=== PATIENT | male | born 1995 | race Hispanic/Latino ===

== ENCOUNTER 2019-06-23 08:50 | Outpatient (CLI) | payer BC ==
--- NOTE | 2019-06-23 09:22 | ULT ---
GALLBLADDER ULTRASOUND: HISTORY:Abdominal pain after eating FINDINGS: The liver demonstrates diffuse increased echotexture without focal mass or intrahepatic biliary ducta l dilatation. No gallstones, gallbladder wall thickening or pericholecystic fluid are seen. The right kidney and visualized portions of the pancreas are normal. The common duct [id number] in diameter. No free fluid is seen in the Novoa's pouch. IMPRESSION: 1. Fatty liver 2. No evidence of cholelithiasis
== END 2019-06-23 08:51 | disposition home or self-care (01) ==
LOC: BICULT 08:50
PROVIDERS: ATTEND Family Medicine
DX: R10.84 Generalized abdominal pain (principal); K76.0 Fatty (change of) liver, not elsewhere classified
CPT/HCPCS: 76705

== ENCOUNTER 2020-01-27 12:30 | Outpatient (CLI) | payer BC ==
--- NOTE | 2020-01-27 15:14 | NM ---
HEPATOBILIARY SCAN: 01/27/20 HISTORY: 24-year-old male with generalized abdominal pain. Early satiety, irregular bowel movements. No gallst ones on ultrasound of 06/23/19. RADIOPHARMACEUTICAL: 5.5 millicuries technetium 99m Mebrofenin injected intravenously. FINDINGS: There is good tracer extraction by the liver with prompt excretion onto the biliary tract and small b owel loops and normal filling of the gallbladder. The calculated gallbladder ejection fraction following an oral fatty meal measures 82%. IMPRESSION: Normal exam. POS: [facility]
== END 2020-01-27 12:31 | disposition home or self-care (01) ==
LOC: NM 12:30
PROVIDERS: ATTEND Family Medicine
DX: R94.5 Abnormal results of liver function studies (principal); R10.9 Unspecified abdominal pain
CPT/HCPCS: 78227; A9537